=== PATIENT | male | born 2005 | race Caucasian/White ===

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

== ENCOUNTER 2023-12-01 02:41 | Emergency (ER) | payer BC ==
[~2023-12-01] VITALS: Ht 177.8 cm; Wt 79.5 kg
[~2023-12-01 02:41] MED LIST: MOTRIN 800800 MG/TAB PO; NORCO 325 MG-51 TAB PO
[2023-12-01 04:11] VITALS: BP 129/75; PULSE 97; TEMP 98.2
== END 2023-12-01 04:11 | disposition home or self-care (01) ==
LOC: COL.ER 02:41
DX: S02.2XXA Fracture of nasal bones, initial encounter for closed fracture (principal); Y04.0XXA Assault by unarmed brawl or fight, initial encounter; Y93.71 Activity, boxing; Y07.54 Acquaintance or friend, perpetrator of maltreatment and neglect